=== PATIENT | male | born 1965 | race Caucasian/White ===

== ENCOUNTER 2017-02-12 12:29 | Outpatient (CLI) | payer OTHER ==
[~2017-02-12 12:29] MED LIST: AMBIEN10 MG ORAL
--- NOTE | 2017-02-12 14:54 | Diagnostic Imaging Report ---
Indication:Scrotal pain Technique: Real time grayscale and duplex Doppler imaging of the scrotum performed. Comparison: None Findings: The size, contour, and echogenicitiy of the testis appear normal bilaterally. There is good doppler evidence of blood flow within both testes. There is a right epididymal cyst measuring approximately 1.4 cm. Bilateral hydroceles are present larger on the right compared to left. There is a left varicocele which is most prominent on color Doppler imaging with all solid. Right testis measures 4.8 x 2.3 x 2.6 cm. Left testis 4.5 x 2.6 x 2.6 cm. Impression: No evidence of testicular mass or torsion. 1.4 CM right epididymal cyst Bilateral small hydroceles slightly larger on the right. Left varicocele
== END 2017-02-12 14:29 | disposition home or self-care (01) ==
LOC: RAD 12:29
DX: Z12.5 Encounter for screening for malignant neoplasm of prostate (principal); N50.3 Cyst of epididymis; N43.3 Hydrocele, unspecified; I86.1 Scrotal varices
CPT/HCPCS: 76870